=== PATIENT | female | born 1990 | race Caucasian/White ===

== ENCOUNTER → 2021-01-25 | Outpatient (CLI) | payer BC ==
--- NOTE | 2021-01-25 10:58 | Diagnostic Imaging Report ---
MRI LT LOWER EXT JOINT W/O TECHNIQUE: Multiplanar, multisequence MR imaging of the left knee was performed without contrast. COMPARISON: None available. INDICATION: Knee pain after injury. FINDINGS: MENISCI Medial meniscus: Normal. Lateral meniscus: Normal. LIGAMENTS ACL: Intact. PCL: Intact. MCL: Intact. LCL: The lateral collateral ligamentous complex is intact. EXTENSOR MECHANISM The extensor mechanism is intact. There appears to be some dysplasia of the trochlea which has a horizontal/flattened orientation and some lateral subluxation of the patella. The tibial tubercle to trochlear groove distance measures 16 mm, which is in the borderline zone of normal-abnormal. CARTILAGE Medial compartment: Medial compartment articular cartilage is well preserved without focal high-grade chondromalacia. Lateral compartment: The lateral compartment articular cartilage is preserved without high-grade chondromalacia. Patellofemoral compartment: Low-grade partial-thickness chondral thinning in the lateral patellar facet. BONE No fracture, stress fracture or osteonecrosis. SOFT TISSUE No knee effusion or Babcock's cyst. IMPRESSION: 1. 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 2. No meniscal injury. 3. The cruciate and collateral ligaments are intact. Dictated by: Dictated on workstation # [id number]
== END ==
LOC: RAD 08:45
PROVIDERS: ATTEND Nurse Practitioner Family
DX: M22.8X2 Other disorders of patella, left knee (principal); M25.462 Effusion, left knee; E66.8 Other obesity; Y93.69 Activity, other involving other sports and athletics played as a team or group
CPT/HCPCS: 73721